=== PATIENT | female | born 1980 | race Caucasian/White ===

== ENCOUNTER 2017-12-18 18:32 | Emergency (ER) | payer MEDICARE, OTHER ==
[2017-12-18 21:05] LABS: BASO # 0.2 K/uL (0.0-0.2); BASO % 1.3 % (0.0-2.0); EOS # 0.1 K/uL (0.0-0.7); EOS % 0.7 % (0.0-4.0); LYMPH # 2.8 K/uL (1.0-4.3); LYMPH % 19.5 % (20.0-40.0); MEAN CELL VOLUME 86.9 fl (81.0-99.0); MEAN CORPUSCULAR HEMOGLOBIN 28.4 pg (27.0-31.0); MEAN CORPUSCULAR HGB CONC 32.7 g/dL (33.0-37.0); MEAN PLATELET VOLUME 9.4 fl (7.2-11.7); MONO # 1.1 K/uL (0.0-0.8); MONO % 7.6 % (0.0-10.0); NEUT # 10.3 K/uL (1.8-7.0); NEUT % 70.9 % (50.0-75.0); RBC 5.29 Mil/uL (3.80-5.20); WHITE BLOOD COUNT 14.5 K/uL (4.8-10.8)
[2017-12-18 21:15] LABS: ALB/GLOB RATIO 1.1 (1.0-2.1); ALBUMIN 4.7 g/dL (3.5-5.0); ALT/SGPT 44 U/L (9-52); AST/SGOT 29 U/L (14-36); BLOOD UREA NITROGEN 11 mg/dl (7-17); GFR NON-AFRICAN AMERICAN > 60
--- NOTE | 2017-12-19 00:13 | ED PDOC ---
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 Per f ather, pt was agitated this afternoon, yelling and banging her head against a door, saying that she wanted to kill herself. Denies LOC. Pt also attempted to harm herself with kitchen utensils. Father said she has not had an outburst like this in 2 years. Pt regularly follows up with [facility], Dr. Ramachandran. She takes Latuda, Depakote, and Ativan daily. Pt had one episode of emesis this afternoon after lunch. Denies substance use, HI, hallucinations, fevers, chills, chest pain, SOB, cough, abdominal pain, nausea, diarrhea, constipation, urinary symptoms, back pain, neck pain, headache, vision changes. Past Medical History Reviewed: Historical Data, Nursing Documentation, Vital Signs Vital Signs: Last Vital Signs Temp 99.4 F 12/18/17 18:45 Pulse 115 H 12/18/17 18:45 Resp 20 12/18/17 18:45 BP 131/83 12/18/17 18:45 Pulse Ox 98 12/18/17 18:45 - Medical History PMH: Bipolar Disorder, Depression, Seizures Denies: Diabetes, Hepatitis, HIV, HTN, Sexually Transmitted Disease - Family History Family History: States: No Known Family Hx - Home Medications Home Medications: Ambulatory Orders Medication Instructions Recorded Divalproex [Depakote DR] 1 tab PO DAILY 12/19/17 Divalproex [Depakote DR] 2 tab PO HS 12/19/17 LORazepam [Ativan] 1 mg PO BID 12/19/17 Lurasidone Hydrochloride [Latuda] 1 tab PO DAILY 12/19/17 - Allergies Allergies/Adverse Reactions: Allergies Allergy/AdvReac Type Severity Reaction Status Date / Time No Known Allergies Allergy Verified 08/19/15 21:54 Review of Systems ROS Statement: Except As Marked, All Systems Reviewed And Found Negative Constitutional: Negative for: Fever, Chills Eyes: Negative for: Vision Change ENT: Negative for: Nose Congestion Cardiovascular: Negative for: Chest Pain, Palpitations Respiratory: Negative for: Cough, Shortness of Breath Gastrointestinal: Positive for: Vomiting. Negative for: Nausea, Abdominal Pain Genitourinary Female: Negative for: Dysuria, Frequency, Incontinence, Vaginal Discharge, Vaginal Bleeding, Pelvic Pain Musculoskeletal: Negative for: Neck Pain, Shoulder Pain, Arm Pain, Back Pain, Hand Pain, Leg Pain, Foot Pain Skin: Negative for: Rash Neurological: Positive for: Seizures, Altered Mental Status. Negative for: Weakness, Numbness, Headache (agitation), Dizziness Psych: Positive for: Anxiety, Depression, Suicidal ideation Physical Exam - Reviewed Nursing Documentation Reviewed: Yes Vital Signs Reviewed: Yes - Physical Exam Appears: Positive for: Well, Non-toxic, No Acute Distress Head Exam: Positive for: ATRAUMATIC, NORMAL INSPECTION, NORMOCEPHALIC Skin: Positive for: Normal Color, Warm, DRY Eye Exam: Positive for: EOMI, Normal appearance, PERRL ENT: Positive for: Normal ENT Inspection Neck: Positive for: Normal, Painless ROM Cardiovascular/Chest: Positive for: Regular Rate, Rhythm Respiratory: Positive for: CNT, Normal Breath Sounds Pulses-Radial (L): 2+ Pulses-Radial (R): 2+ Gastrointestinal/Abdominal: Positive for: Normal Exam, Soft Back: Positive for: Normal Inspection Extremity: Positive for: Normal ROM. Negative for: Tenderness, Deformity, Swelling Neurologic/Psych: Positive for: Alert, digital photographer II-XII, Oriented, Mood/Affect (anxious). Negative for: Motor/Sensory Deficits - Laboratory Results Result Diagrams: 12/18/17 20:53 12/18/17 20:53 - ECG O2 Sat by Pulse Oximetry: 98 Medical Decision Making Medical Decision Makin:15 Initial Plan: * Head CT * CXR, AXR * Labs * Valproic acid level * UA, culture * UDS * 1:1 * Crisis Eval 21:00 Crisis diagnosed pt with Bipolar Disorder, per Dr. Hernandez. Cannot admit here secondary to history of autism, will screen for transfer to [facility]. CBC: leukocytosis, similar to prior visit in 2016. Pending imaging. CMP: wnl Depakote level: wnl 21:30 Pt allowed to take her evening dose of Depakote, per Dr. Israel. 00:00 Will sign out pt to HELEN Hanna who will take over the care of pt. She was made aware of all resulted diagnostic studies. Pending [facility] call-back, EKG, Imaging, urine. Pt stable, resting comfortably in stretcher. Disposition - Clinical Impression Clinical Impression: Bipolar disorder - Patient ED Disposition Is Patient to be Admitted: Transfer of Care - Disposition Disposition: Transfer of Care Disposition Time: 00:00 Condition: STABLE Forms: [employer] (Macedonian) Patient Signed Over To: Niru Hardin (Pending [facility] callback, EKG, Imaging, Urine)
--- NOTE | 2017-12-19 01:43 | ED PDOC ---
- Laboratory Results Result Diagrams: 12/18/17 20:53 12/18/17 20:53 - ECG ECG: Positive for: Viewed By Me (reviewed by ED attending) ECG Rhythm: Positive for: Sinus Rhythm O2 Sat by Pulse Oximetry: 98 - Progress ED Course And Treament: Case endorsed to advertising writer from Tariq PEREZ pending CT, xray, ekg, urine, [facility] [place] reen Patient given Zyprexa PO medication due to persistent agitation in ED 2:45 Patient still agitated; intermittently screaming and cursing. Ativan IM ordered 4:30 Patient sleeping; no distress CT SCAN OF THE BRAIN WITHOUT IV CONTRAST CLINICAL INDICATION: Injury. TECHNIQUE: Axial and reformatted sagittal and coronal images of the brain obtained without IV contrast administration. FINDINGS: Absent corpus callosum. Unremarkable right ventriculoperitoneal shunt. Normal size of the ventricles and extra-axial spaces for the patient's age. Normal white matter tracts of the supratentorial brain. Normal basal ganglia and thalami. Normal brainstem. Normal cerebellum. There is no demonstrated extra-axial, intraparenchymal, or intraventricular hemorrhage. There are no findings of an acute ischemic infarction. Normal calvarium. There is no demonstrated fracture. Normal soft tissue structures. Normal visualized paranasal sinuses. IMPRESSION: Absent corpus callosum. Unremarkable right ventriculoperitoneal shunt. No CT evidence of acute brain pathology. <Niru Hardin - Last Filed: 12/19/17 04:53> - Laboratory Results Result Diagrams: 12/18/17 20:53 12/18/17 20:53 <Royal Israel - Last Filed: 12/19/17 06:47> Medical Decision Making Medical Decision Makin Patient endorsed to Dr. Cam pending [facility] Eval. CXR is wnl. Patient medically cleared. <oRyal Israel - Last Filed: 12/19/17 06:47> Disposition - POA Present On Arrival: None - Disposition Disposition: Transfer of Care Disposition Time: 05:00 Patient Signed Over To: Royal Israel Handoff Comments: pending xray, [facility] eval <Niru Hardin - Last Filed: 12/19/17 04:53> - POA Present On Arrival: None - Disposition Disposition: Transfer of Care Disposition Time: 07:00 Patient Signed Over To: Dorina,Haviva Y Handoff Comments: pending [facility] <Royal Israel - Last Filed: 12/19/17 06:47> - Clinical Impression Clinical Impression: Bipolar disorder - Disposition Forms: [facility] (Bulgarian)
[2017-12-19 03:54] LABS: SQUAMOUS EPITHIAL 4 /hpf (0-5); URINE BACTERIA FEW (<OCC); URINE BILIRUBIN NEGATIVE (NEGATIVE); URINE BLOOD NEGATIVE (NEGATIVE); URINE CLARITY SLIGHTY-CLOUDY (Clear); URINE COLOR YELLOW (YELLOW); URINE GLUCOSE (UA) NEG (Normal); URINE LEUKOCYTE ESTERASE NEG Leu/uL (Negative); URINE PROTEIN NEGATIVE (NEGATIVE); URINE UROBILINOGEN 0.2-1.0 mg/dL (0.2-1.0)
[2017-12-19 04:02] LABS: BARBITURATES, UR NEGATIVE (NEGATIVE); BENZODIAZEPINES, UR NEGATIVE (NEGATIVE); OPIATES, UR NEGATIVE (NEGATIVE); PHENCYCLIDINE, UR NEGATIVE (NEGATIVE)
--- NOTE | 2017-12-19 07:30 | ED PDOC ---
- Laboratory Results Result Diagrams: 12/18/17 20:53 12/18/17 20:53 - ECG O2 Sat by Pulse Oximetry: 98 (RA) Pulse Ox Interpretation: Normal Medical Decision Making Medical Decision Makin:00 --Patient endorsed to this provider by Dr. Israel pending [facility] evaluation. She has already been medically cleared for psychiatric evaluation. 09:37 --Upon reevaluation, patient became agitated, began screaming and cursing at the staff and tried to get out of bed. Ativan 2 mg IM was given to relieve her agitation. pt still agitated. 1130 am pt seen by psychiatrist Dr De León who will order more medication for patient. pt has been accepted to [facility] but no beds available yet. 130 pm pt calmer, resting in no distress [address] Miramontes pending bed at [facility] Scribe Attestation: Documented by Mary Latham acting as a scribe for Eric Cam MD Provider Scribe Attestation: All medical record entries made by the Scribe were at my direction and personally dictated by me. I have reviewed the chart and agree that the record accurately reflects my personal performance of the history, physical exam, me dical decision making, and the department course for this patient. I have also personally directed, reviewed, and agree with the discharge instructions and disposition. Disposition - Clinical Impression Clinical Impression: Bipolar disorder - POA Present On Arrival: None - Disposition Disposition: Transfer of Care Disposition Time: 15:00 Condition: STABLE Forms: [employer] (Cuban) Patient Signed Over To: Silva Miramontes Handoff Comments: pending [facility] bed
--- NOTE | 2017-12-19 09:01 | CT ---
Date of service: 12/19/2017 PROCEDURE: CT HEAD WITHOUT CONTRAST. HISTORY: head injury COMPARISON: None available. TECHNIQUE: Axial computed tomography images were obtained through the head/brain without intravenous contrast. Radiation dose: Total exam DLP = 876.83 mGy-cm. This CT exam was performed using one or more of the following dose reduction techniques: Automated exposure control, adjustment of the mA and/or kV according to patient size, and/or use of iterative reconstruction technique. FINDINGS: HEMORRHAGE: No intracranial hemorrhage. BRAIN: Agenesis of the corpus callosum. No intracranial mass, hemorrhage or evidence of acute infarct. VENTRICLES: Two right parietal ventriculostomy catheters. No ventriculomegaly. Focal dilatation of the atrium/occipital horn of the left lateral ventricle is noted, of no probable clinical significance. 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 No fracture. Two right parietal ventriculostomy catheters. CALVARIUM: Unremarkable. PARANASAL SINUSES: Unremarkable as visualized. No significant inflammatory changes. MASTOID AIR CELLS: Unremarkable as visualized. No inflammatory changes. OTHER FINDINGS: None. IMPRESSION: Absent corpus callosum. Focal dilatation of the atrium/occipital horn left lateral ventricle. Otherwise unremarkable. No intracranial hemorrhage. The preliminary findings for this examination were reported by [facility] at 12/19/2017 at 4:52 a.m.. There is concurrence of this report with the preliminary findings.
--- NOTE | 2017-12-19 09:46 | RAD ---
Date of service: 12/19/2017 HISTORY: clearance COMPARISON: 08/20/2015 FINDINGS: LUNGS: No active pulmonary disease. PLEURA: No significant pleural effusion identified, no pneumothorax apparent. CARDIOVASCULAR: No aortic atherosclerotic calcification present. Normal cardiac size. No pulmonary vascular congestion. Right ventriculoperitoneal shunt catheter traverses the right hemithorax. OSSEOUS STRUCTURES: No significant abnormalities. VISUALIZED UPPER ABDOMEN: Normal. OTHER FINDINGS: None. IMPRESSION: No active disease.
[2017-12-19] MEDS ORDERED: Divalproex 500 mg DR(BID formulation) PO STA (11:22)
[2017-12-19] MEDS ORDERED: Divalproex 250 mg DR(BID formulation) PO STA (11:22)
--- NOTE | 2017-12-19 11:22 | CP.PCM.CON ---
History of Present Illness - History of Present Illness History of Present Illness: Psychiatry consult note CC: "I need to get my period back, my parents took it from me." HPI: 37 yo female w/ h/o intellectual disability and bipolar disorder, presents acutely bizarre, labile, disorganized, w/ self-injurious behaviors and ideation. Patient historian and expresses paranoid ideation towards her parents. No drugs/etoh. Patient screened by [facility] [place] for involuntary psychiatric [place]. Patient is currently compliant with her medications: Latuda, Depakote and Ativan Impression: 37 yo female w/ intellectual disability and bipolar disorder, presents acutely decompensated, pending transfer to [facility] [place]. -Zyprexa 5 mg PO stat -Depakote 500 mg PO stat -Transfer to [facility] when bed is available Past Patient History - Past Social History Smoking Status: Never Smoked - CARDIAC Hx Hypertension: No - PULMONARY Hx Tuberculosis: No - NEUROLOGICAL Hx Seizures: Yes - HEMATOLOGICAL/ONCOLOGICAL Hx Human Immunodeficiency Virus (HIV): No - GENITOURINARY/GYNECOLOGICAL Hx Sexually Transmitted Disorders: No - PSYCHIATRIC Hx Bipolar Disorder: Yes Hx Depression: Yes - SURGICAL HISTORY Hx Surgeries: No Other/Comment: nystagmus correction surgery. V-P shunt. - ANESTHESIA Hx Anesthesia: Yes Hx Anesthesia Reactions: No Hx Malignant Hyperthermia: No Meds Allergies/Adverse Reactions: Allergies Allergy/AdvReac Type Severity Reaction Status Date / Time No Known Allergies Allergy Verified 08/19/15 21:54 Results - Vital Signs Recent Vital Signs: Last Vital Signs Temp 98.2 F 12/19/17 02:25 Pulse 93 H 12/19/17 02:25 Resp 18 12/19/17 02:25 BP 111/63 12/19/17 02:25 Pulse Ox 98 12/19/17 09:38 - Labs Result Diagrams: 12/18/17 20:53 12/18/17 20:53 Labs: Laboratory Results - last 24 hr 12/18/17 12/18/17 12/18/17 20:53 20:53 20:53 WBC 14.5 H RBC 5.29 H Hgb 15.0 Hct 46.0 MCV 86.9 MCH 28.4 MCHC 32.7 L RDW 14.0 Plt Count 389 D MPV 9.4 Neut % (Auto) 70.9 Lymph % (Auto) 19.5 L Stanley % (Auto) 7.6 Eos % (Auto) 0.7 Baso % (Auto) 1.3 Neut # (Auto) 10.3 H Lymph # (Auto) 2.8 Stanley # (Auto) 1.1 H Eos # (Auto) 0.1 Baso # (Auto) 0.2 Sodium 142 Potassium 4.8 Chloride 105 Carbon Dioxide 26 Anion Gap 16 BUN 11 Creatinine 0.5 L Est GFR ( Amer) > 60 Est GFR (Non-Af Amer) > 60 Random Glucose 92 Calcium 10.0 Total Bilirubin 0.4 AST 29 ALT 44 Alkaline Phosphatase 51 Total Protein 8.8 H Albumin 4.7 Globulin 4.1 H Albumin/Globulin Ratio 1.1 Urine Color Urine Clarity Urine pH Ur Specific [place] Urine Protein Urine Glucose (UA) Urine Ketones Urine Blood Urine Nitrate Urine Bilirubin Urine Urobilinogen Ur Leukocyte Esterase Urine RBC (Auto) Urine Microscopic WBC Ur Squamous Epith Cells Urine Bacteria Urine Opiates Screen Urine Methadone Screen Ur Barbiturates Screen Valproic Acid 50.3 Ur Phencyclidine Scrn Ur Amphetamines Screen U Benzodiazepines Scrn U Oth Cocaine Metabols U Cannabinoids Screen Alcohol, Quantitative 12/19/17 12/19/17 12/19/17 03:37 03:37 04:15 WBC RBC Hgb Hct MCV MCH MCHC RDW Plt Count MPV Neut % (Auto) Lymph % (Auto) Stanley % (Auto) Eos % (Auto) Baso % (Auto) Neut # (Auto) Lymph # (Auto) Stanley # (Auto) Eos # (Auto) Baso # (Auto) Sodium Potassium Chloride Carbon Dioxide Anion Gap BUN Creatinine Est GFR ( Amer) Est GFR (Non-Af Amer) Random Glucose Calcium Total Bilirubin AST ALT Alkaline Phosphatase Total Protein Albumin Globulin Albumin/Globulin Ratio Urine Color Yellow Urine Clarity Slighty-cloudy Urine pH 7.0 Ur Specific [place] 1.009 Urine Protein Negative Urine Glucose (UA) Neg Urine Ketones Negative Urine Blood Negative Urine Nitrate Negative Urine Bilirubin Negative Urine Urobilinogen 0.2-1.0 Ur Leukocyte Esterase Neg Urine RBC (Auto) < 1 Urine Microscopic WBC 2 Ur Squamous Epith Cells 4 Urine Bacteria Few H Urine Opiates Screen Negative Urine Methadone Screen Negative Ur Barbiturates Screen Negative Valproic Acid Ur Phencyclidine Scrn Negative Ur Amphetamines Screen Negative U Benzodiazepines Scrn Negative U Oth Cocaine Metabols Negative U Cannabinoids Screen Negative Alcohol, Quantitative < 10
--- NOTE | 2017-12-19 11:23 | CARD ---
APPROVED REPORT Date of service: 12/19/2017 EKG Measurement Heart [id number] <Conclusion> Normal sinus rhythm Normal ECG
--- NOTE | 2017-12-19 16:18 | ED PDOC ---
- Laboratory Results Result Diagrams: 12/18/17 20:53 12/18/17 20:53 - ECG O2 Sat by Pulse Oximetry: 99 (RA) Pulse Ox Interpretation: Normal Medical Decision Making Medical Decision Makin:00 --Patient is medically and psychiatric cleared for admission to [facility]. Pending bed availability. Scribe Attestation: Documented by Mary Latham acting as a scribe for Silva Miramontes MD Provider Scribe Attestation: All medical record entries made by the Scribe were at my direction and personally dictated by me. I have reviewed the chart and agree that the record accurately reflects my personal performance of the history, physical exam, medical decision making, and the department course for this patient. I have also personally directed, reviewed, and agree with the discharge instructions and disposition. 1655 --Pt now becoming more agitated, shouting, and pacing around the room. Will given 2mg Ativan. Disposition - Clinical Impression Clinical Impression: Bipolar disorder - Disposition Condition: STABLE Forms: [employer] (Mongolian)
--- NOTE | 2017-12-20 08:01 | ED PDOC ---
- Laboratory Results Result Diagrams: 12/18/17 20:53 12/18/17 20:53 - ECG O2 Sat by Pulse Oximetry: 97 Medical Decision Making Medical Decision Making: received patient from Dr. Israel. patient is medically cleared as per report, accepted to [facility] but pending bed availability. At present she remains on 1:1 observation and is without distress or agitation according to her sitter. patient was seen by psych earlier. Medicated as per psych. Patient is awaiting bed Disposition Counseled Patient/Family Regarding: Diagnosis - Clinical Impression Clinical Impression: Bipolar disorder - POA Present On Arrival: None - Disposition Disposition: Transfer of Care Disposition Time: 14:13 Condition: STABLE Forms: [employer] (Bulgarian) Patient Signed Over To: Marti Ellison
[2017-12-20] MEDS ORDERED: Divalproex 250 mg ER (ONCE DAILY formulation) PO ONE (11:06)
[2017-12-20] MEDS ORDERED: Divalproex 250 mg DR(BID formulation) PO STA (11:27)
--- NOTE | 2017-12-20 11:53 | CP.PCM.CON ---
History of Present Illness - History of Present Illness History of Present Illness: Psychiatry consult follow-up note CC: Acute agitation/ mood lability/ psychosis HPI: 37 yo female w/ h/o intellectual disability and bipolar disorder, presents acutely bizarre, labile, disorganized, w/ self-injurious behaviors and ideation. Patient historian and expresses paranoid ideation towards her parents. No drugs/etoh. Patient [place] [facility] [place] for [place] psychiatric [place]. Patient is currently compliant with her medications: Latuda, Depakote and Ativan Impression: 37 yo female w/ intellectual disability and bipolar disorder, presents acutely decompensated, pending transfer [place] [facility] [place]. -Zyprexa 5 mg PO stat -Depakote 500 mg PO stat -Transfer to [facility] when bed is available Past Patient History - Past Social History Smoking Status: Never Smoked - CARDIAC Hx Hypertension: No - PULMONARY Hx Tuberculosis: No - NEUROLOGICAL Hx Seizures: Yes - HEMATOLOGICAL/ONCOLOGICAL Hx Human Immunodeficiency Virus (HIV): No - GENITOURINARY/GYNECOLOGICAL Hx Sexually Transmitted Disorders: No - PSYCHIATRIC Hx Bipolar Disorder: Yes Hx Depression: Yes - SURGICAL HISTORY Hx Surgeries: No Other/Comment: nystagmus correction surgery. V-P shunt. - ANESTHESIA Hx Anesthesia: Yes Hx Anesthesia Reactions: No Hx Malignant Hyperthermia: No Meds Allergies/Adverse Reactions: Allergies Allergy/AdvReac Type Severity Reaction Status Date / Time No Known Allergies Allergy Verified 08/19/15 21:54 - Medications Medications: Current Medications Haloperidol Lactate (Haldol) 5 mg IM STAT STA Stop: 12/20/17 11:53 Results - Vital Signs Recent Vital Signs: Last Vital Signs Temp 98.6 F 12/20/17 10:26 Pulse 99 H 12/20/17 10:26 Resp 16 12/20/17 06:00 BP 111/62 12/20/17 10:26 Pulse Ox 98 12/20/17 10:26 - Labs Result Diagrams: 12/18/17 20:53 12/18/17 20:53
[2017-12-20] MEDS ORDERED: Divalproex 500 mg DR(BID formulation) PO STA (12:14)
[2017-12-20 14:15] VITALS: O2SAT 97
[2017-12-20 15:10] VITALS: BP 103/64; PULSE 91; RESP 20; TEMP 98.7
== END 2017-12-20 15:51 | disposition short-term general hospital (02) ==
LOC: H.ER 18:32
DX: F31.9 Bipolar disorder, unspecified (principal); F29 Unspecified psychosis not due to a substance or known physiological condition; S09.90XA Unspecified injury of head, initial encounter; W22.8XXA Striking against or struck by other objects, initial encounter; Y92.89 Other specified places as the place of occurrence of the external cause; F84.0 Autistic disorder; F79 Unspecified intellectual disabilities; G40.909 Epilepsy, unspecified, not intractable, without status epilepticus; Z79.899 Other long term (current) drug therapy; Z98.2 Presence of cerebrospinal fluid drainage device
CPT/HCPCS: 70450; 80053; 80164; 81003; 81025; 85025; 87086; 99285; G0480; J2060